=== PATIENT | male | born 1970 | race Two or more races ===

== ENCOUNTER 2024-08-04 08:35 | Inpatient (IN) | payer BC ==
[2024-07-31 12:03] LABS: Urine Bacteria None Seen /hpf (None Seen)
[2024-07-31 12:20] LABS: Basophils # (auto) 0.1 10 ^3/uL (0-0.2); Basophils % (auto) 0.9 % (0.0-2.0); Eosinophils # (auto) 0.2 10 ^3/uL (0-0.8); Eosinophils % (auto) 1.6 % (0.0-7.0); Hematocrit 51.1 % (41.0-53.0); Hemoglobin 17.5 g/dL (13.5-17.5); Lymphocytes # (auto) 3.3 10 ^3/uL (0.4-5.4); Lymphocytes % (auto) 25.7 % (10.0-50.0); Mean Corpuscular Hemoglobin 29.6 pg (28.0-32.0); Mean Corpuscular Hgb Conc. 34.3 g/dL (32.0-36.0); Mean Corpuscular Volume 86.2 fL (80.0-100.0); Monocytes # (auto) 0.8 10 ^3/uL (0-1.3); Monocytes % (auto) 6.5 % (0.0-12.0); Neutrophils # (auto) 8.4 10 ^3/uL (1.6-8.6); Neutrophils % (auto) 65.3 % (37.0-80.0); Nucleated Red Blood Cells % 0.5 %; Platelet Count (auto) 310 10^3/uL (140-450); Red Blood Cells 5.93 10^6/uL (4.5-5.90); Red Cell Distribution Width 13.8 % (11.8-14.3); White Blood Cell 12.9 10^3/uL (4.4-10.8)
[2024-07-31 12:34] LABS: Alanine Aminotransferase 32 U/L (7-40); Albumin 4.6 g/dL (3.2-4.8); Alkaline Phosphatase 105 U/L (46-116); Anion Gap 4 (5-15); Aspartate Aminotransferase 28 U/L (13-40); BUN/Creatinine Ratio 10.1 (10.0-20.0); Bilirubin, Total 0.9 mg/dL (0.2-1.0); Blood Urea Nitrogen 7 mg/dL (9-23); Calcium 9.6 mg/dL (8.7-10.4); Carbon Dioxide 30 mmol/L (20-31); Chloride 106 mmol/L (98-107); Glucose 101 mg/dL (74-106); Potassium 4.1 mmol/L (3.5-5.1); Sodium 140 mmol/L (136-145); Total Protein 7.4 g/dL (5.7-8.2)
[2024-07-31 12:43] LABS: INR 1.03 (0.9-1.15); Partial Thromboplastin Time 28.8 SEC (24.5-34.5); Prothrombin Time 10.9 sec (9.3-11.8)
[2024-07-31 12:50] LABS: Urine Blood Negative /uL (Negative); Urine Clarity Clear (Clear); Urine Color Yellow (Yellow); Urine Mucus FEW (None Seen); Urine Protein, UAD Negative (Negative); Urine Specific Gravity 1.017 (1.001-1.035); Urine Urobilinogen Normal (Negative); Urine WBC 1 /hpf (0 - 3); Urine pH 6.5 (5.0-9.0)
[~2024-08-04] VITALS: Ht 180.3 cm; Wt 150.0 kg
[~2024-08-04 08:35] MED LIST: AMLO1TAB22 PO; CARV6.2551 PO
[2024-08-04] MEDS: TRANEXAMIC ACID 20 ML ONE (11:17)
[2024-08-04] MEDS: levoFLOXacin 500MG 100 ML IV ONE (11:18)
--- NOTE | 2024-08-04 11:22 | DVHHP2 ---
History of Present Illness Home Meds Reported Medications Carvedilol (Carvedilol) 6.25 Mg Tab, 6.25 MG PO BID for 30 Days, MG 07/31/24 Amlodipine Besylate (Amlodipine Besylate) 5 Mg Tab, 10 MG PO DAILY for 30 Days, MG 07/31/24 Timing/Duration of Neck Pain: Getting worse, > 1 Month Quality of Neck Pain: Aching, Burning, Cramping, Dullness Method of Injury/Prior Factors: Other Timing/Duration of Back Pain: Getting worse, > 1 Month Quality of Back Pain: Dullness, Fullness, Sharpness Back Pain Location: Lumbar spine, Paraspinous muscles Back Pain Radiation: Buttocks, Thigh area, Knees, Lower legs Associated Symptoms of Back Pa: Muscle spasms, Numbness in legs, Numbness in feet, Tingling in legs, Tingling in feet, Sensory loss, Motor loss, Loss of bladder control H&P Exam Vital Signs Vital Signs Date Time Temp Pulse Resp B/P (MAP) Pulse Ox O2 Delivery O2 Flow Rate FiO2 08/04/24 09:07 99.1 98 18 155/96 (115) 94 99.1 General Appeara: Well developed, Well nourished, Normal Appearance Head Exam: Normal inspection Neck Exam: Normal inspection, Non-tender, Normal alignment Eye Exam: bilateral eye Normal inspection, bilateral eye PERRL, bilateral eye EOMI Ear Exam: bilateral ear Auricle normal, bilateral ear Canal normal, bilateral ear TM normal Nasal Exam: Normal inspection Mouth: Normal Inspection Pulmonary/Respiratory: Normal inspection, Normal breath sounds, Chest non- tender, Lungs clear Cardiovascular/Chest: Normal inspection, Regular rate, Normal Rhythm Abdominal Exam: Normal bowel sounds, Soft, No tenderness, No hepatospenomegaly, No masses Rectal Exam: Deferred Back Exam: Normal inspection Pelvic Exam: Not done Male Genital Exam: Not done Shoulder Exam: Normal inspection, Non-tender, Normal ROM Elbow/Forearm Exam: Normal inspection, Non-tender, Normal ROM Wrist Exam: Normal inspection, Non-tender, Normal ROM Hand Exam: Normal inspection, Non-tender, Normal ROM Hip exam: Normal inspection, Non-tender, Normal range of motion Legs: bilateral leg non-tender, bilateral leg normal inspection, bilateral leg normal range of motion, bilateral leg no evidence of injury Knees: bilateral knee non-tender, bilateral knee normal inspection, bilateral knee normal range of motion, bilateral knee no evidence of injury Ankle Exam: bilateral ankle Normal inspection, bilateral ankle Non-tender, bilateral ankle Normal range of motion, bilateral ankle No evidence of injury Foot: bilateral foot non-tender, bilateral foot normal inspection, bilateral foot normal range of motion, bilateral foot no evidence of injury Tendon/ Neuro: Normal sensation, Normal motor function, Normal tendon functions, Motor deficit, Sensory deficit [employer] Exam: Normal hearing, Normal speech, PERRL Motor/Sensory: Weak motor strength RLE, Weak motor strength LLE Deep Tendon Ref: All intact Neuro/Mental St: Alert, Oriented Appearance: Appropriate appearance, Appropriate insight Eye contact/ Speech: Cooperative, Good eye contact, Normal speech Coordination/Gait: Abnormal gait Skin Exam: Normal inspection, Normal color, Warm/dry Lymphatic: Normal inspection Labs/Xrays Labs Test 07/31/24 11:52 Range/Units White Blood Count 12.9 H 4.4-10.8 10^3/uL Red Blood Count 5.93 H 4.5-5.90 10^6/uL Hemoglobin 17.5 13.5-17.5 g/dL Hematocrit 51.1 41.0-53.0 % Mean Corpuscular Volume 86.2 80.0-100.0 fL Mean Corpuscular Hemoglobin 29.6 28.0-32.0 pg Mean Corpuscular Hemoglobin Concent 34.3 32.0-36.0 g/dL Red Cell Distribution Width 13.8 11.8-14.3 % Platelet Count 310 140-450 10^3/uL Mean Platelet Volume 7.9 6.9-10.8 fL Neutrophils (%) (Auto) 65.3 37.0-80.0 % Lymphocytes (%) (Auto) 25.7 10.0-50.0 % Monocytes (%) (Auto) 6.5 0.0-12.0 % Eosinophils (%) (Auto) 1.6 0.0-7.0 % Basophils (%) (Auto) 0.9 0.0-2.0 % Neutrophils # (Auto) 8.4 1.6-8.6 10 ^3/uL Lymphocytes # (Auto) 3.3 0.4-5.4 10 ^3/uL Monocytes # (Auto) 0.8 0-1.3 10 ^3/uL Eosinophils # (Auto) 0.2 0-0.8 10 ^3/uL Basophils # (Auto) 0.1 0-0.2 10 ^3/uL Nucleated Red Blood Cells 0.5 % Prothrombin Time 10.9 9.3-11.8 sec Prothrombin Time INR 1.03 0.9-1.15 Activated Partial Thromboplast Time 28.8 24.5-34.5 SEC Urine Color Yellow Yellow Urine Clarity Clear Clear Urine pH 6.5 5.0-9.0 Urine Specific [place] 1.017 1.001-1.035 Urine Protein Negative Negative Urine Ketones Negative Negative Urine Blood Negative Negative /uL Urine Nitrite Negative Negative Urine Bilirubin Negative Negative Urine Urobilinogen Normal Negative mg/dL Urine Leukocyte Esterase Negative Negative /uL Urine RBC 1 0 - 3 /hpf Urine WBC 1 0 - 3 /hpf Urine Squamous Epithelial Cells Few <5 /hpf Urine Bacteria None seen None Seen /hpf Urine Mucus Few None Seen Urine Glucose Normal Normal mg/dL Sodium Level 140 136-145 mmol/L Potassium Level 4.1 3.5-5.1 mmol/L Chloride Level 106 98-107 mmol/L Carbon Dioxide Level 30 20-31 mmol/L Anion Gap 4 L 5-15 Blood Urea Nitrogen 7 L 9-23 mg/dL Creatinine 0.69 L 0.700-1.30 mg/dL Glomerular Filtration Rate Calc 110 >90 mL/min BUN/Creatinine Ratio 10.1 10.0-20.0 Serum Glucose 101 74-106 mg/dL Calcium Level 9.6 8.7-10.4 mg/dL Total Bilirubin 0.9 0.2-1.0 mg/dL Aspartate Amino Transferase (AST) 28 13-40 U/L Alanine Aminotransferase (ALT) 32 7-40 U/L Alkaline Phosphatase 105 46-116 U/L Total Protein 7.4 5.7-8.2 g/dL Albumin 4.6 3.2-4.8 g/dL Assessment/Plan Primary Diagnosis post laminectomy syndrome lumbar spine Plan admit for elective lumbar spine surgery Plan discussed with: Patient PAGE RODAS MD Aug 04, 2024 11:22
[2024-08-04] MEDS: PROPOFOL 100 ML IV ONE (11:29)
[2024-08-04] MEDS ORDERED: ROCURONIUM 10MG/ML 10ML VIAL IV ONE (12:32)
[2024-08-04] MEDS ORDERED: PROPOFOL 10 MG/ML 20 ML IV ONE ×2 (12:32→15:13)
[2024-08-04] MEDS: ceFAZolin 2 GM/D5W100ml 100 ML IV ONE (12:49)
[2024-08-04] MEDS ORDERED: fentaNYL CITRATE 100 MCG/2 ML VL ONE ×2 (13:21→13:40)
[2024-08-04] MEDS ORDERED: MIDAZOLAM HCL 2MG/2ML 2ml VIAL (1mg/ml) ONE (13:21)
[2024-08-04] MEDS ORDERED: MORPHINE SULFATE INJ 2 MG/ml SYRG IV PRN ×2 (13:30→15:45)
[2024-08-04] MEDS ORDERED: NITROGLYCERIN 0.4 MG SL TAB SL PRN ×2 (13:30→15:45)
[2024-08-04] MEDS ORDERED: D5W/SOD CHLO 0.9% 1,000 ML IV SCH (13:30)
[2024-08-04] MEDS ORDERED: ONDANSETRON HCL 4 MG/2 ML VIAL IV PRN ×2 (13:30→15:45)
[2024-08-04] MEDS ORDERED: ACETAMINOPHEN 325 MG TAB PO PRN ×2 (13:30→15:45)
[2024-08-04] MEDS: PROPOFOL 200 ML IV ONE (14:06)
[2024-08-04] MEDS: MINERAL OIL TOPICAL 10ml TOP ONE (14:41)
[2024-08-04] MEDS ORDERED: SUGAMMADEX 200mg/2ml Vial (100MG/ML) IV ONE ×2 (15:44→15:45)
[2024-08-04] MEDS ORDERED: HYDROcodone-ACET 10/325MG TAB PO PRN (15:45)
[2024-08-04] MEDS: D5W/SOD CHLO 0.9% 1,000 ML IV SCH (15:45)
[2024-08-04] MEDS ORDERED: ONDANSETRON HCL 4 MG/2 ML VIAL ONE (15:50)
[2024-08-04] MEDS ORDERED: KETOROLAC TROMETH 30 MG/ML 1ML VIAL ONE (15:50)
[2024-08-04] MEDS ORDERED: DexAMETHasone SOD PHOS 10MG/1ML VIAL INJ ONE (15:50)
[2024-08-04] MEDS: LIDOCAINE 1%HCL (LOCAL ANESTH) 10 ML MDV IJ ONE (16:00)
[2024-08-04 16:29] VITALS: PULSE 83; RESP 18; O2SAT 100
--- NOTE | 2024-08-04 16:54 | DVH ---
EXAM: XY C ARM FLUOROSCOPY UP TO 60MIN, XY LUMBAR SPINE 3 VIEW HISTORY: L2-4 POSTERIOR SPINAL DECOMPRESSION AND FUSION FLUOROSCOPY TIME: 167.0 seconds FLUOROSCOPY IMAGES: 37 TECHNIQUE: Intraoperative radiographs of the lumbar spine were obtained. COMPARISON: None FINDINGS/IMPRESSION: Refer to intraoperative report for further evaluation.
[2024-08-04] MEDS: MORPHINE SULFATE INJ 2 MG/ml SYRG IV PRN ×3 (17:22→18:30)
[2024-08-04] MEDS: CYCLOBENZAPRINE HCL 10 MG TAB PO SCH (17:35)
[2024-08-04] MEDS: MORPHINE SULFATE 4 MG/ML SYR/VIAL ONE (17:46)
[2024-08-04 20:00] VITALS: PULSE 86; PULSE 97; RESP 18; O2SAT 95
[2024-08-04 21:00] VITALS: BP 137/93; PULSE 97; RESP 18; TEMP 98.8; O2SAT 95
[2024-08-04] MEDS: ceFAZolin 1GM/50ML 50 ML IV SCH (21:18)
[2024-08-04] MEDS: DOCUSATE SOD 100 MG CAP PO SCH (21:18)
[2024-08-04] MEDS ORDERED: ceFAZolin 1GM/50ML 50 ML IV SCH (22:00)
[2024-08-04] MEDS ORDERED: CYCLOBENZAPRINE HCL 10 MG TAB PO SCH (22:00)
[2024-08-04] MEDS ORDERED: DOCUSATE SOD 100 MG CAP PO SCH (22:00)
[2024-08-05] VITALS (9 sets, daily range): BP systolic 123–131; BP diastolic 61–87; PULSE 91–112; RESP 17–18; TEMP 98.1–99.2; O2SAT 92–94
[2024-08-05] MEDS: amLODIPine BESYLATE 5 MG TAB PO SCH (09:14)
[2024-08-06] VITALS (8 sets, daily range): BP systolic 94–146; BP diastolic 77–142; PULSE 71–120; RESP 16–20; TEMP 97.6–99.6; O2SAT 90–95
[2024-08-06] MEDS: HYDROcodone-ACET 10/325MG TAB PO PRN (09:19)
--- NOTE | 2024-08-06 13:35 | DVHPN2 ---
Progress Note - Surgical Date Seen: Aug 06, 2024 Post op day Post op day: 2 Subjective Patient reports: No new complaints Review of Systems: HEENT:Normal, CVS:Normal, RESPIRATORY:Normal, GI:Normal, :Normal, MSK:Normal, NEURO:Normal Objective Vital signs Vital Sign Date Time Temp Pulse Resp B/P (MAP) Pulse Ox O2 Delivery O2 Flow Rate FiO2 08/06/24 12:35 97.6 104 19 123/79 (94) 90 97.6 08/06/24 08:00 Nasal Cannula* 1 24 Total Intake and Output 08/05/24 08/05/24 08/06/24 14:59 22:59 06:59 Intake Total 50 ml 1350 ml 550 ml Output Total 980 ml 650 ml Balance 50 ml 370 ml -100 ml Medications Current Medications Medications Dose Ordered Sig/Leonor Route Start Time Stop Time Status Last Admin Dose Admin Ondansetron HCl 4 mg Q4HP PRN IV 08/04/24 13:30 Acetaminophen/ Hydrocodone Bitart 1 tab Q6HP PRN PO 08/04/24 13:30 08/06/24 09:19 1 TAB Morphine Sulfate 1 mg Q4HP PRN IV 08/04/24 13:30 08/06/24 11:43 1 MG Cyclobenzaprine HCl 10 mg TID PO 08/04/24 14:00 08/06/24 05:30 10 MG Docusate Sodium 100 mg BID PO 08/04/24 22:00 08/06/24 09:18 100 MG Nitroglycerin 0.4 mg Q5MINP PRN SL 08/04/24 13:30 Morphine Sulfate 2 mg Q30M PRN IV 08/04/24 13:30 Dextrose/Sodium Chloride 1,000 ml @ 100 mls/hr Q10H IV 08/04/24 15:45 08/06/24 06:45 100 MLS/HR Acetaminophen 650 mg Q6HP PRN PO 08/04/24 15:45 Cefazolin Sodium 50 ml @ 100 mls/hr Q8HR IV 08/04/24 22:00 08/06/24 14:29 Cancel Amlodipine Besylate 10 mg DAILY PO 08/05/24 10:00 08/06/24 09:18 10 MG Laboratory Laboratory Tests 07/31/24 11:52 Test 07/31/24 11:52 Range/Units Serum Glucose 101 74-106 mg/dL Examination: GENERAL:Normal, HEENT:Normal, NECK:Normal, LUNGS:Normal, CVS:Normal, ABDOMEN:Normal, MSK:Normal, SKIN:Normal, NEURO:Normal, :Normal Problem List/Assessment/Plan Problems: (1) Postoperative pain after spinal surgery (2) Muscle spasm of back Assessment and Plan keep drains in, output is still to high #1 280ml in past 24 hours, #2 70ml in past 24 hrs Patient able to walk with PT. Yesterday he ambulated three laps with PT on 08/05/24, and once today. +gas, no BM eating and drinking well pain is present but manageable at this time. Patient is progressing to discharge, pending drain output and continued progress with PT. Plan discussed with Plan discussed with: Patient, Other (Tory [id number]) Visit Coding Surgery Date of Service if different f: Aug 06, 2024 Billing Provider: FLORY WEINSTEIN NP Surgery Visit Codes: NOT BILLABLE FLORY WEINSTEIN NP Aug 06, 2024 13:35
[2024-08-07] VITALS (8 sets, daily range): BP systolic 103–154; BP diastolic 76–93; PULSE 103–124; RESP 18–21; TEMP 97.3–98.8; O2SAT 90–94
--- NOTE | 2024-08-07 18:53 | DVHPN2 ---
Subjective 53M with PMHx of chronic back pain is s/p spinal surgery. He has had many years of chronic debilitating back pain. he has been following spinal surgery and underwent surgery yesterday; he is admitted for post laminectomy syndrome of lumbar spine. he has pain from the surgery but tlerating with prn pain control medications. no n/v, consiptaiton/diarrhea, abdominal pain, sob, chest pain. Reviewed: H&P Changes from previous H/P or p: No Changes General: Per HPI Objective Vitals Vital Signs Date Time Temp Pulse Resp B/P (MAP) Pulse Ox O2 Delivery O2 Flow Rate FiO2 08/07/24 17:00 98.8 110 18 143/78 (99) 91 98.8 08/07/24 08:00 Room Air* 0 21 Intake/Output Intake and Output 08/07/24 07:00 Intake Total 2920 ml Output Total 1875 ml Balance 1045 ml Intake Oral 2920 ml Output Urine Total 1875 ml # Voids 1 Exam GEN: obese individiual, well-developed, NAD. HEENT: NC/AT; MMM. CV: RRR, no m/r/g. LUNGS: CTAB, no w/r/c. ABD: Soft, NT/ND, NBS, no masses or organomegaly. EXT: skin Warm, well perfused. no rashes. No clubbing, cyanosis, or edema. ROM at spine and mobility limited due to recent back surgery NEURO: Ambulating. No focal deficits. Medications Current Medications Medications Dose Ordered Sig/Leonor Route Start Time Stop Time Status Last Admin Dose Admin Ondansetron HCl 4 mg Q4HP PRN IV 08/04/24 13:30 Acetaminophen/ Hydrocodone Bitart 1 tab Q6HP PRN PO 08/04/24 13:30 08/07/24 16:29 1 TAB Morphine Sulfate 1 mg Q4HP PRN IV 08/04/24 13:30 08/07/24 05:16 1 MG Cyclobenzaprine HCl 10 mg TID PO 08/04/24 14:00 08/07/24 13:01 10 MG Docusate Sodium 100 mg BID PO 08/04/24 22:00 08/07/24 09:53 100 MG Nitroglycerin 0.4 mg Q5MINP PRN SL 08/04/24 13:30 Morphine Sulfate 2 mg Q30M PRN IV 08/04/24 13:30 Dextrose/Sodium Chloride 1,000 ml @ 100 mls/hr Q10H IV 08/04/24 15:45 08/06/24 06:45 100 MLS/HR Acetaminophen 650 mg Q6HP PRN PO 08/04/24 15:45 Cefazolin Sodium 50 ml @ 100 mls/hr Q8HR IV 08/04/24 22:00 08/06/24 14:29 Cancel Amlodipine Besylate 10 mg DAILY PO 08/05/24 10:00 08/07/24 09:54 10 MG Laboratory Results Laboratory Tests 07/31/24 11:52 Urinalysis Test 07/31/24 11:52 Urine Color Yellow (Yellow) Urine Clarity Clear (Clear) Urine pH 6.5 (5.0-9.0) Urine Specific [place] 1.017 (1.001-1.035) Urine Protein Negative (Negative) Urine Ketones Negative (Negative) Urine Blood Negative /uL (Negative) Urine Nitrite Negative (Negative) Urine Bilirubin Negative (Negative) Urine Urobilinogen Normal mg/dL (Negative) Urine Leukocyte Esterase Negative /uL (Negative) Urine RBC 1 /hpf (0 - 3) Urine WBC 1 /hpf (0 - 3) Urine Squamous Epithelial Cells Few /hpf (<5) Urine Bacteria None seen /hpf (None Seen) Urine Mucus Few (None Seen) Urine Glucose Normal mg/dL (Normal) Labs and/or images reviewed: Labs reviewed by me, Image(s) reviewed by me Assessment/Plan Assessment/Plan post laminectomy syndrome lumbar spine Postoperative pain after spinal surgery Muscle spasm of back - spinal surgery following - per recent note, vicky output needs to be monitored - PT contnueing to follow - will wait for spinal surgery signoff and clearance continue diet, PT, into chair QID Plan discussed with: Patient Date of Service: Aug 07, 2024 Billing Provider: KELI CHAPARRO MD Common Visit Codes: [id number] INP/OBS CARE(MOD) KELI CHAPARRO MD Aug 07, 2024 18:53
[2024-08-08] VITALS (9 sets, daily range): BP systolic 116–145; BP diastolic 77–87; PULSE 109–144; RESP 17–21; TEMP 98.3–99.5; O2SAT 88–97
--- NOTE | 2024-08-08 15:13 | DVHPN2 ---
Subjective 53-year-old male with chronic back pain status post spinal surgery. Working with PT today, has constipation. Reviewed: Care Plan, H&P, Labs, Medications, Previous Orders, Radiology Changes from previous H/P or p: No Changes General: Per HPI Objective Vitals Vital Signs Date Time Temp Pulse Resp B/P (MAP) Pulse Ox O2 Delivery O2 Flow Rate FiO2 08/08/24 13:37 109 08/08/24 12:46 99.5 20 144/87 (106) 92 99.5 08/08/24 11:45 Room Air* 0 N/A Nasal Cannula* Intake/Output Intake and Output 08/08/24 07:00 Intake Total 3330 ml Output Total 500 ml Balance 2830 ml Intake Oral 2930 ml IV Total 400 ml Output Urine Total 500 ml # Voids 5 Exam Alert, oriented x3 PERRLA Obese Clear breath sounds bilaterally S1-S2 regular rate and rhythm no murmur Abdomen soft nontender, no hepatomegaly Limited spine mobility due to recent back surgery, brace in place Medications Current Medications Medications Dose Ordered Sig/Leonor Route Start Time Stop Time Status Last Admin Dose Admin Ondansetron HCl 4 mg Q4HP PRN IV 08/04/24 13:30 Acetaminophen/ Hydrocodone Bitart 1 tab Q6HP PRN PO 08/04/24 13:30 08/08/24 10:15 1 TAB Morphine Sulfate 1 mg Q4HP PRN IV 08/04/24 13:30 08/08/24 12:12 1 MG Cyclobenzaprine HCl 10 mg TID PO 08/04/24 14:00 08/08/24 06:00 10 MG Docusate Sodium 100 mg BID PO 08/04/24 22:00 08/08/24 10:13 100 MG Nitroglycerin 0.4 mg Q5MINP PRN SL 08/04/24 13:30 Morphine Sulfate 2 mg Q30M PRN IV 08/04/24 13:30 Dextrose/Sodium Chloride 1,000 ml @ 100 mls/hr Q10H IV 08/04/24 15:45 08/06/24 06:45 100 MLS/HR Acetaminophen 650 mg Q6HP PRN PO 08/04/24 15:45 Cefazolin Sodium 50 ml @ 100 mls/hr Q8HR IV 08/04/24 22:00 08/06/24 14:29 Cancel Amlodipine Besylate 10 mg DAILY PO 08/05/24 10:00 08/08/24 10:14 10 MG Laboratory Results Laboratory Tests 07/31/24 11:52 Urinalysis Test 07/31/24 11:52 Urine Color Yellow (Yellow) Urine Clarity Clear (Clear) Urine pH 6.5 (5.0-9.0) Urine Specific [place] 1.017 (1.001-1.035) Urine Protein Negative (Negative) Urine Ketones Negative (Negative) Urine Blood Negative /uL (Negative) Urine Nitrite Negative (Negative) Urine Bilirubin Negative (Negative) Urine Urobilinogen Normal mg/dL (Negative) Urine Leukocyte Esterase Negative /uL (Negative) Urine RBC 1 /hpf (0 - 3) Urine WBC 1 /hpf (0 - 3) Urine Squamous Epithelial Cells Few /hpf (<5) Urine Bacteria None seen /hpf (None Seen) Urine Mucus Few (None Seen) Urine Glucose Normal mg/dL (Normal) Labs and/or images reviewed: Labs reviewed by me, Image(s) reviewed by me Assessment/Plan Assessment/Plan post laminectomy syndrome lumbar spine Postoperative pain after spinal surgery Muscle spasm of back - spinal surgery following - per recent note, vicky output needs to be monitored - PT contnueing to follow - will wait for spinal surgery signoff and clearance continue diet, PT, into chair QID Bowel regimen Diet regular DVT prophylaxis continue Plan discussed with: Patient Date of Service: Aug 08, 2024 Billing Provider: SCOOTER ADAMS MD Common Visit Codes: [id number] INP/OBS CARE(MOD) SCOOTER ADAMS MD Aug 08, 2024 15:13
[2024-08-08] MEDS: DOCUSATE SOD 100 MG CAP PO SCH (22:12)
[2024-08-09] VITALS (9 sets, daily range): BP systolic 121–158; BP diastolic 70–89; PULSE 95–118; RESP 16–20; TEMP 97.2–99.4; O2SAT 91–98
[2024-08-09] MEDS: POLYETHYLENE GLYCOL 17 GM PWDR PO ONE (17:00)
[2024-08-09] MEDS: MORPHINE SULFATE INJ 2 MG/ml SYRG IV PRN (20:34)
[2024-08-09] MEDS: ACETAMINOPHEN 325 MG TAB PO SCH (22:31)
[2024-08-10] VITALS (8 sets, daily range): BP systolic 97–154; BP diastolic 65–84; PULSE 104–139; RESP 16–22; TEMP 97.9–99.5; O2SAT 91–97
[2024-08-10] MEDS: POLYETHYLENE GLYCOL 17 GM PWDR PO ONE (13:51)
--- NOTE | 2024-08-10 16:49 | DVHDS2 ---
Discharge Summary Date of Admission Aug 04, 2024 at 13:18 Date of Discharge: Aug 10, 2024 Admitting Diagnosis post laminectomy syndrome lumbar spine Labs/Diagnostic Data: Laboratory Results Test 07/31/24 11:52 White Blood Count 12.9 10^3/uL (4.4-10.8) Red Blood Count 5.93 10^6/uL (4.5-5.90) Hemoglobin 17.5 g/dL (13.5-17.5) Hematocrit 51.1 % (41.0-53.0) Mean Corpuscular Volume 86.2 fL (80.0-100.0) Mean Corpuscular Hemoglobin 29.6 pg (28.0-32.0) Mean Corpuscular Hemoglobin Concent 34.3 g/dL (32.0-36.0) Red Cell Distribution Width 13.8 % (11.8-14.3) Platelet Count 310 10^3/uL (140-450) Mean Platelet Volume 7.9 fL (6.9-10.8) Neutrophils (%) (Auto) 65.3 % (37.0-80.0) Lymphocytes (%) (Auto) 25.7 % (10.0-50.0) Monocytes (%) (Auto) 6.5 % (0.0-12.0) Eosinophils (%) (Auto) 1.6 % (0.0-7.0) Basophils (%) (Auto) 0.9 % (0.0-2.0) Neutrophils # (Auto) 8.4 10 ^3/uL (1.6-8.6) Lymphocytes # (Auto) 3.3 10 ^3/uL (0.4-5.4) Monocytes # (Auto) 0.8 10 ^3/uL (0-1.3) Eosinophils # (Auto) 0.2 10 ^3/uL (0-0.8) Basophils # (Auto) 0.1 10 ^3/uL (0-0.2) Nucleated Red Blood Cells 0.5 % Prothrombin Time 10.9 sec (9.3-11.8) Prothrombin Time INR 1.03 (0.9-1.15) Activated Partial Thromboplast Time 28.8 SEC (24.5-34.5) Urine Color Yellow (Yellow) Urine Clarity Clear (Clear) Urine pH 6.5 (5.0-9.0) Urine Specific [place] 1.017 (1.001-1.035) Urine Protein Negative (Negative) Urine Ketones Negative (Negative) Urine Blood Negative /uL (Negative) Urine Nitrite Negative (Negative) Urine Bilirubin Negative (Negative) Urine Urobilinogen Normal mg/dL (Negative) Urine Leukocyte Esterase Negative /uL (Negative) Urine RBC 1 /hpf (0 - 3) Urine WBC 1 /hpf (0 - 3) Urine Squamous Epithelial Cells Few /hpf (<5) Urine Bacteria None seen /hpf (None Seen) Urine Mucus Few (None Seen) Urine Glucose Normal mg/dL (Normal) Sodium Level 140 mmol/L (136-145) Potassium Level 4.1 mmol/L (3.5-5.1) Chloride Level 106 mmol/L (98-107) Carbon Dioxide Level 30 mmol/L (20-31) Anion Gap 4 (5-15) Blood Urea Nitrogen 7 mg/dL (9-23) Creatinine 0.69 mg/dL (0.700-1.30) Glomerular Filtration Rate Calc 110 mL/min (>90) BUN/Creatinine Ratio 10.1 (10.0-20.0) Serum Glucose 101 mg/dL (74-106) Calcium Level 9.6 mg/dL (8.7-10.4) Total Bilirubin 0.9 mg/dL (0.2-1.0) Aspartate Amino Transferase (AST) 28 U/L (13-40) Alanine Aminotransferase (ALT) 32 U/L (7-40) Alkaline Phosphatase 105 U/L (46-116) Total Protein 7.4 g/dL (5.7-8.2) Albumin 4.6 g/dL (3.2-4.8) Other Laboratory Tests 07/31/24 11:52 Brief Hx & Hospital Course: pt. tolerated the procedure well. ONce he tolerated po pain meds, passed physical therapy, was hemodynamically stable and DME arranged, plans made to d/c home Condition at Discharge: Good Final Diagnosis/Problems List lumbar spinal stenosis Discharge Disposition: Home Discharge Instruct/Medications Diet: Regular Activity: No Restrictions, As Tolerated Follow Up/Referral: already made Medications: called in to patient's pharmacy from clinic EMR Discharge Statement: "Patient was advised to return to the ER or call 911 if any headaches, dizziness, shortness of breath, chest pain, abdominal pain, bleeding, fevers, or worsening of medical condition. Patient was counseled about treatment plan, medications, possible side effects, patientverbalized understanding. All questions were answered to the best of my ability. This discharge took greater then 30 minutes in planning, reviewing documentation, counseling the patient, and discussing with other team members." ASSESSMENT ASSESSMENT Assessment lumbar spinal stenosis PAGE RODAS MD Aug 10, 2024 16:48
--- NOTE | 2024-08-10 17:58 | DVHPN2 ---
Subjective 53M with PMHx of chronic back pain is s/p spinal surgery. He has had many years of chronic debilitating back pain. he has been following spinal surgery and underwent surgery yesterday; he is admitted for post laminectomy syndrome of lumbar spine. he has pain from the surgery but tlerating with prn pain control medications. no n/v, consiptaiton/diarrhea, abdominal pain, sob, chest pain. update - 08/10 this am. feels better w BM. pain on R leg, stretched muscle per pt. function intact. walking with PT daily but pain mostly on from R leg. Reviewed: Care Plan, H&P, Labs, Medications, Previous Orders, Radiology Changes from previous H/P or p: No Changes General: Per HPI Objective Vitals Vital Signs Date Time Temp Pulse Resp B/P (MAP) Pulse Ox O2 Delivery O2 Flow Rate FiO2 08/10/24 16:59 98.7 116 18 129/72 (91) 94 98.7 08/10/24 08:00 Room Air* 0 N/A Nasal Cannula* Intake/Output Intake and Output 08/10/24 07:00 Intake Total 3980 ml Output Total 300 ml Balance 3680 ml Intake Oral 3180 ml IV Total 800 ml Output Urine Total 300 ml # Voids 7 Exam GEN: obese individiual, well-developed, NAD. HEENT: NC/AT; MMM. CV: RRR, no m/r/g. LUNGS: CTAB, no w/r/c. ABD: Soft, NT/ND, NBS, no masses or organomegaly. EXT: skin Warm, well perfused. no rashes. No clubbing, cyanosis, or edema. ROM at spine and mobility limited due to recent back surgery NEURO: Ambulating. No focal deficits. Medications Current Medications Medications Dose Ordered Sig/Leonor Route Start Time Stop Time Status Last Admin Dose Admin Ondansetron HCl 4 mg Q4HP PRN IV 08/04/24 13:30 Acetaminophen/ Hydrocodone Bitart 1 tab Q6HP PRN PO 08/04/24 13:30 08/10/24 02:21 1 TAB Cyclobenzaprine HCl 10 mg TID PO 08/04/24 14:00 08/10/24 14:51 10 MG Nitroglycerin 0.4 mg Q5MINP PRN SL 08/04/24 13:30 Dextrose/Sodium Chloride 1,000 ml @ 100 mls/hr Q10H IV 08/04/24 15:45 08/09/24 22:38 100 MLS/HR Cefazolin Sodium 50 ml @ 100 mls/hr Q8HR IV 08/04/24 22:00 08/06/24 14:29 Cancel Amlodipine Besylate 10 mg DAILY PO 08/05/24 10:00 08/10/24 10:16 10 MG Docusate Sodium 200 mg BID PO 08/08/24 22:00 08/10/24 10:16 200 MG Morphine Sulfate 2 mg Q4HP PRN IV 08/09/24 16:45 08/10/24 14:53 2 MG Acetaminophen 650 mg Q8HR PO 08/09/24 22:00 08/10/24 06:15 650 MG Polyethylene Glycol 17 gm DAILY PO 08/11/24 10:00 Laboratory Results Laboratory Tests 07/31/24 11:52 Urinalysis Test 07/31/24 11:52 Urine Color Yellow (Yellow) Urine Clarity Clear (Clear) Urine pH 6.5 (5.0-9.0) Urine Specific [place] 1.017 (1.001-1.035) Urine Protein Negative (Negative) Urine Ketones Negative (Negative) Urine Blood Negative /uL (Negative) Urine Nitrite Negative (Negative) Urine Bilirubin Negative (Negative) Urine Urobilinogen Normal mg/dL (Negative) Urine Leukocyte Esterase Negative /uL (Negative) Urine RBC 1 /hpf (0 - 3) Urine WBC 1 /hpf (0 - 3) Urine Squamous Epithelial Cells Few /hpf (<5) Urine Bacteria None seen /hpf (None Seen) Urine Mucus Few (None Seen) Urine Glucose Normal mg/dL (Normal) Labs and/or images reviewed: Labs reviewed by me, Image(s) reviewed by me Assessment/Plan Assessment/Plan update - 08/10 - BM this am. feels better w BM. pain on R leg, stretched muscle per pt. function intact. walking with PT daily but pain mostly on from R leg. post laminectomy syndrome lumbar spine Postoperative pain after spinal surgery Muscle spasm of back right leg pain - spinal surgery following - per recent note, vicky output needs to be monitored - PT contnueing to follow - will wait for spinal surgery signoff and clearance - still pending guidance on case from spinal surgery team continue diet, PT, into chair QID dvt ppx - lovenox gi ppx - catracho. diet med/surg Plan discussed with: Patient My Orders Orders - KELI CHAPARRO MD Procedure Category Date Status Time Polyethylene Glycol PHA 08/11/24 In Process 17g Powder (Miralax 10:00 Date of Service: Aug 10, 2024 Billing Provider: KELI CHAPARRO MD Common Visit Codes: [id number] INP/OBS CARE(MOD) KELI CHAPARRO MD Aug 10, 2024 17:58
--- NOTE | 2024-08-10 19:37 | DVH ---
Clinical History: RT UPPER THIGH PAIN AND REDNESS Comparison: None Technique: Duplex Doppler evaluation of the deep venous system of the right lower extremity from the common fem oral vein to the popliteal vein including color Doppler and spectral/pulsed waveform analysis was per formed. Findings: The common femoral vein demonstrates appropriate compressibility and waveform variability. There is compressibility/patency of the great saphenous vein at the proximal thigh. The femoral vein demonstrates appropriate compressibility and waveform variability. The deep femoral vein demonstrates appropriate compressibility and waveform variability. The popliteal vein demonstrates appropriate compressibility and waveform variability. There is color flow in the tibioperoneal trunk and posterior tibial vein. Impression: 1. No deep venous thrombosis in the right lower extremity. If clinical concern/symptoms persist or w orsen, short-interval follow-up study is suggested.
[2024-08-11 01:00] VITALS: BP 139/83; PULSE 109; RESP 19; TEMP 98; O2SAT 92
[2024-08-11 05:00] VITALS: BP 120/81; PULSE 108; RESP 19; TEMP 98.7; O2SAT 92
[2024-08-11 06:25] LABS: Basophils # (auto) 0.1 10 ^3/uL (0-0.2); Basophils % (auto) 0.7 % (0.0-2.0); Eosinophils # (auto) 0.6 10 ^3/uL (0-0.8); Eosinophils % (auto) 5.1 % (0.0-7.0); Hematocrit 40.8 % (41.0-53.0); Hemoglobin 13.6 g/dL (13.5-17.5); Lymphocytes # (auto) 3.1 10 ^3/uL (0.4-5.4); Lymphocytes % (auto) 25.5 % (10.0-50.0); Mean Corpuscular Hemoglobin 29.1 pg (28.0-32.0); Mean Corpuscular Hgb Conc. 33.4 g/dL (32.0-36.0); Monocytes # (auto) 1.1 10 ^3/uL (0-1.3); Monocytes % (auto) 9.4 % (0.0-12.0); Neutrophils # (auto) 7.2 10 ^3/uL (1.6-8.6); Neutrophils % (auto) 59.3 % (37.0-80.0); Nucleated Red Blood Cells % 0.1 %; Platelet Count (auto) 337 10^3/uL (140-450); Red Blood Cells 4.69 10^6/uL (4.5-5.90); Red Cell Distribution Width 13.8 % (11.8-14.3); White Blood Cell 12.1 10^3/uL (4.4-10.8)
[2024-08-11 06:46] LABS: Alanine Aminotransferase 34 U/L (7-40); Albumin 3.8 g/dL (3.2-4.8); Alkaline Phosphatase 90 U/L (46-116); Anion Gap 6 (5-15); Aspartate Aminotransferase 18 U/L (13-40); Bilirubin, Total 0.6 mg/dL (0.2-1.0); Blood Urea Nitrogen 8 mg/dL (9-23); Calcium 9.2 mg/dL (8.7-10.4); Carbon Dioxide 30 mmol/L (20-31); Chloride 102 mmol/L (98-107); Glucose 99 mg/dL (74-106); Potassium 3.7 mmol/L (3.5-5.1); Sodium 138 mmol/L (136-145); Total Protein 6.1 g/dL (5.7-8.2)
[2024-08-11 08:00] VITALS: PULSE 105
[2024-08-11 09:12] VITALS: BP 140/90; PULSE 105; RESP 16; TEMP 98; O2SAT 93
[2024-08-11] MEDS: POLYETHYLENE GLYCOL 17 GM PWDR PO SCH (10:30)
[2024-08-11 13:06] VITALS: BP 124/83; PULSE 109; RESP 16; TEMP 98.7; O2SAT 96
[2024-08-11] MEDS ORDERED: HYDR-4798 PO (13:59)
[2024-08-11] MEDS ORDERED: CYCL-839 PO (13:59)
[2024-08-11 14:06] VITALS: BP 124/83; PULSE 109; RESP 16; TEMP 98.7; O2SAT 96
--- NOTE | 2024-08-11 23:53 | DVHPN2 ---
Subjective 53M with PMHx of chronic back pain is s/p spinal surgery. He has had many years of chronic debilitating back pain. he has been following spinal surgery and underwent surgery yesterday; he is admitted for post laminectomy syndrome of lumbar spine. he has pain from the surgery but tlerating with prn pain control medications. no n/v, consiptaiton/diarrhea, abdominal pain, sob, chest pain. update - 08/10 - BM this am. feels better w BM. pain on R leg, stretched muscle per pt. function intact. walking with PT daily but pain mostly on from R leg. - 08/11-patient discharge planning done yesterday. Right leg ultrasound for DVT was negative. Pain still continues on right leg. Patient is adamant that pain is likely related to muscle. He does not want to get an x-ray of the right knee. Continues to ambulate but has pain, tolerable with the p.r.n. analgesia. Reviewed: Care Plan, H&P, Labs, Medications, Previous Orders, Radiology Changes from previous H/P or p: No Changes General: Per HPI Objective Vitals Vital Signs Date Time Temp Pulse Resp B/P (MAP) Pulse Ox O2 Delivery O2 Flow Rate FiO2 08/11/24 14:06 98.7 109 16 96 08/11/24 13:06 124/83 (97) 08/11/24 08:00 Room Air* 0 21 Intake/Output Intake and Output 08/11/24 07:00 Intake Total 1900 ml Output Total 550 ml Balance 1350 ml Intake Oral 1700 ml IV Total 200 ml Output Urine Total 550 ml # Voids 6 # Bowel Movements 2 Exam GEN: obese individiual, well-developed, NAD. HEENT: NC/AT; MMM. CV: RRR, no m/r/g. LUNGS: CTAB, no w/r/c. ABD: Soft, NT/ND, NBS, no masses or organomegaly. EXT: skin Warm, well perfused. no rashes. No clubbing, cyanosis, or edema. ROM at spine and mobility limited due to recent back surgery. R thigh blanching rash. NEURO: Ambulating. No focal deficits. Medications Current Medications Medications Dose Ordered Sig/Leonor Route Start Time Stop Time Status Last Admin Dose Admin Cefazolin Sodium 50 ml @ 100 mls/hr Q8HR IV 08/04/24 22:00 08/06/24 14:29 Cancel Laboratory Results Laboratory Tests 08/11/24 06:05 Chemistry Test 08/11/24 06:05 Albumin 3.8 g/dL (3.2-4.8) Calcium Level 9.2 mg/dL (8.7-10.4) Total Protein 6.1 g/dL (5.7-8.2) LFT Test 08/11/24 06:05 Alanine Aminotransferase (ALT) 34 U/L (7-40) Alkaline Phosphatase 90 U/L (46-116) Aspartate Amino Transferase (AST) 18 U/L (13-40) Total Bilirubin 0.6 mg/dL (0.2-1.0) Urinalysis Test 07/31/24 11:52 Urine Color Yellow (Yellow) Urine Clarity Clear (Clear) Urine pH 6.5 (5.0-9.0) Urine Specific [place] 1.017 (1.001-1.035) Urine Protein Negative (Negative) Urine Ketones Negative (Negative) Urine Blood Negative /uL (Negative) Urine Nitrite Negative (Negative) Urine Bilirubin Negative (Negative) Urine Urobilinogen Normal mg/dL (Negative) Urine Leukocyte Esterase Negative /uL (Negative) Urine RBC 1 /hpf (0 - 3) Urine WBC 1 /hpf (0 - 3) Urine Squamous Epithelial Cells Few /hpf (<5) Urine Bacteria None seen /hpf (None Seen) Urine Mucus Few (None Seen) Urine Glucose Normal mg/dL (Normal) Labs and/or images reviewed: Labs reviewed by me, Image(s) reviewed by me Assessment/Plan Assessment/Plan update - 08/11-patient discharge planning done yesterday. Right leg ultrasound for DVT was negative. Pain still continues on right leg. Patient is adamant that pain is likely related to muscle. He does not want to get an x-ray of the right knee. Continues to ambulate but has pain, tolerable with the p.r.n. analgesia. post laminectomy syndrome lumbar spine Postoperative pain after spinal surgery Muscle spasm of back right leg pain - Right leg ultrasound for DVT was negative - spinal surgery following - per recent note, vicky output needs to be monitored - PT contnueing to follow - will wait for spinal surgery signoff and clearance - still pending guidance on case from spinal surgery team continue diet, PT, into chair QID dvt ppx - lovenox gi ppx - catracho. diet med/surg - patient is seen and examined today. Refer to spinal surgery discharge summary for details. Prescriptions for analgesia p.r.n. are sent to patient pharmacy. Plan discussed with: Patient Date of Service: Aug 11, 2024 Billing Provider: KELI CHAPARRO MD Common Visit Codes: [id number] INP/OBS CARE(MOD) KELI CHAPARRO MD Aug 11, 2024 23:53
--- NOTE | 2024-09-21 22:38 | DVHOP2 ---
Operative Report - 2 Report Details Date: 09/21/24 Preop Diagnosis: post laminectomy syndrome lumbar spine with severe residual stenosis and degenerative scoliosis lumbar spine Postop Diagnosis: same as pre op Surgeon: Hayes Rodas MD Anesthesiologist: nisha Anesthesia: General Consent: The patient was informed of the risks and benefits of the procedure. These include but are not limited to complications of anesthesia, postoperative infection, incomplete relief of symptoms, recurrence of symptoms, damage to blood vessels, nerves and tendons, deep venous thrombosis, pulmonary embolism and possible need for repeat surgery in the future. Name of Procedure Performed see detailed note Procedure Details Procedure Details: Pre-op Diagnosis: Lumbar Degenerative Disk Disease and Lumbar Spinal Stenosis , degenerative scoliosis causing Incapacitating back pain, radiculopathy and progressive neurologic deficit along with post laminectomy syndrome lumbar spine Post-op Diagnosis: Lumbar Degenerative Disk Disease and Lumbar Spinal Stenosis, degenerative scoliosis causing Incapacitating back pain, radiculopathy and progressive neurologic deficit along with post laminectomy syndrome lumbar spine Procedure: Revision Lumbar 5 laminotomies, foraminotomies and facetectomies to decompress central canal and Lumbar 5 nerve roots Revision lumbar 4 laminotomies, foraminotomies and facetectomies to decompress central canal and Lumbar 4 nerve roots Lumbar 3 laminectomy with Lumbar 3 foraminotomies and facetectomies to decompress central canal and Lumbar 4 nerve roots Lumbar 3 to 4 posterior spinal interbody fusion with PEEK cage Lumbar 4 to 5 posterior spinal interbody fusion with PEEK cage Lumbar 3 to 5 posterior spinal instrumentation with pedicle screws Local Bone Autograft For Fusion Allograft Bone Substitute (Bacterin) to augment Fusion Use of Demineralized Bone Matrix to Augment Fusion Microscope For Microdissection Surgeon: Hayes Rodas MD Assist: TARA Bishop Anesthesia: General Fluids and EBL: See anesthesia note Patient was seen in the Pre Anesthesia Care Unit (PACU) and the operative site was initialed by me. All questions were answered to the patients satisfaction and chart reviewed. The patient was taken to the operative room where pre- operative antibiotics were given 30 minutes prior to incision. General anesthesia was induced and neuro-monitoring leads placed. Trinidad catheter was p laced. The patient was turned prone onto the [facility] spinal table. While positioning, I made sure that the belly was free to allow proper expansion of the lungs. The hips were extended and all bony prominences padded. The shoulders were abducted 80 degree and the elbows flexed 100 degrees with no tension on the brachial plexus. I check the foot arterial pulses and they were palpable. The patient was prepped and draped and time out was taken at this time per usual protocol. At this time, the C-arm fluoroscope was brought in and was used to manda the incision borders proximally and distally. The patient had a prior incision from a prior lumbar spine surgery and we marked out the new incision over the oold one and extended 1 inch distal or proximal Using a Number 10 Blade, an incision was made extending it proximally and distally per C arm manda from the posterior spinous process of lumbar 4,5 down to the lumbo-dorsal fascia. All bleeding was controlled with electrocautery. Self-retaining retractors were placed. Electrocautery was then used to take down the lumbo-dorsal fascia, to free the muscle off the bone bilaterally. There were still remnants of lumbar 5 and 4 remaining and there was a lot of scarring that was very tedious to safely remove but it was successful. A Zohra retractor was placed over the posterior spinous process proximally and a lateral C-arm fluoroscope image was taken to insure we were at the correct level. Next, using bovie electro cautery, The deep fascia laterally to the facet joints was removed to expose the transverse processes of lumbar 3, 4 and 5 while taking care to avoid injuring the facet capsule at the proximal end of the incision. Next, the microscope was bought in for visualization and using a Ekinopsell r ongeur, the posterior spinous process of lumbar 3 and 4 and 5 bone were removed and the bone was saved for use as local autograft. There was a partial laminectomy performed at Lumbar 5 and 4 and we performed the revision laminectomy from the other side and completed full decompression at L5 and L4. Next the lumbar 3 laminectomy was performed [place] standard manner. Next using alternating Kerison 2mm and 3 mm rongeurs, the superior articular facets of lumbar 3, 4 and 5 were removed bilaterally to decompress the lateral recess (facetectomies) and then extended proximally to decompress the foramen bilaterally (foraminotomies). I used a ball tipped nerve probed to insure that the respective nerve roots were able to be mobilized 5mm in each direction were unimpeded in the lateral recess and foramen. Next I carefully inspected the dura to make sure no durotomy was visible and it was not. I retracted the right lumbar 5 nerve medially and used increasing size danyelle until the proper size prepared and then inserted a [id number] PEEK cage in to the disc space at L4/5 using C arm fluoroscopy. I repeated this process at the L3/4 level. I covered the exposed dura with gelfoam soaked in thrombin and the microscope was wheeled away from the operative filed. The C-arm fluoroscope was brought in and perfect AP views of the lumbar 4 and 5 pedicles were obtained. I placed bilateral pedicle screws at these levels by: using a Lenke awl to make a harbor pilot hole, then a ball tip robe to make sure there was no pedicle breach, then a tap to prepare the track and a 6.5 mm diameter 45 mm length pedicle screw was placed bilaterally. This step to place bilateral pedicle screws was repeated up to the lumbar 3, 4 and 5 level. Next, the c-arm fluoroscope took an AP and lateral x-ray to ensure proper placement of the pedicle screws. Next, the neuro-stimulation probe was placed over the tip of each screw and each screw stimulated only after a current greater than 10 mA was delivered to the screw. Next , I took a Midas Albin Drill to decorticate the transverse process which were exposed and local bone graft, Bacterin allograft bone substitute and Demineralized bone matrix were placed along the inter transverse process intervals bilaterally (the fusion bed). Next a curved johan sized to fit the pedicle screw interval was placed and secured to each pedicle screw using set screws, The set screws were tightened using a torque screwdriver (set to 10 N*M torque) to secure the johan to the pedicle screws bilaterally. Final AP and lateral C arm fluoroscopic films were taken at this time. Next a 10 [place] diameter Hemovac drain was laced deep to the lumbo- dorsal fascia. The lumbo-dorsal fascia was closed with interrupted 0-Vicry sutures. The subcutaneous tissue was closed with interrupted 2-0 Vicryl sutures. The skin was closed with running 2-0 nylon suture. Sterile dressings were place. The pt. was turned supine onto the stretcher, extubated and taken to the recovery room in stable condition. At the end of the case a TLSO brace was placed as well as an external bone stimulator. Condition Good Disposition Still a Patient HAYES RODAS MD Sep 21, 2024 22:38
== END 2024-08-11 15:25 | disposition home or self-care (01) | DRG 428 ==
LOC: SUR 08:35 → TELE 13:18 → TELE-EAST 18:16
PROVIDERS: ADMIT Orthopaedic Surgery; ATTEND Student in an Organized Health Care Education/Training Program
PROC: 01NB0ZZ Release Lumbar Nerve, Open Approach (ICD-10-PCS; 2024-08-04)
PROC: 0SG1071 Fusion of 2 or more Lumbar Vertebral Joints with Autologous Tissue Substitute, Posterior Approach, Posterior Column, Open Approach (ICD-10-PCS; 2024-08-04)
PROC: 4A11X4G Monitoring of Peripheral Nervous Electrical Activity, Intraoperative, External Approach (ICD-10-PCS; 2024-08-04)
PROC: 0SG10AJ Fusion of 2 or more Lumbar Vertebral Joints with Interbody Fusion Device, Posterior Approach, Anterior Column, Open Approach (ICD-10-PCS; principal; 2024-08-04 12:47)
DX: M48.061 Spinal stenosis, lumbar region without neurogenic claudication (principal); M96.1 Postlaminectomy syndrome, not elsewhere classified; G89.29 Other chronic pain; K59.00 Constipation, unspecified; M62.830 Muscle spasm of back; Z79.899 Other long term (current) drug therapy
CPT/HCPCS: 36415; 72100; 76000; 80053; 81001; 85025; 85610; 85730; 86850; 86900; 86901; 93971; 97110; 97116; 97163; 97530; G0378; J1100; J1885; J1956; J2003; J2250; J2405; J2704; J7042; J7060